=== PATIENT | female | born 1980 | race Caucasian/White ===

== ENCOUNTER 2017-12-11 11:17 | Inpatient (IN) | payer OTHER ==
[2017-12-11] MEDS ORDERED: AMPICILLIN 2 GM/NS (PMX) 100 ML IV (12:30)
[2017-12-11] MEDS ORDERED: BUTORPHANOL 2 MG INJ IV (12:30)
[2017-12-11] MEDS ORDERED: METHYLERGONOVINE 0.2 MG INJ IM (12:30)
[2017-12-11] MEDS ORDERED: MISOPROSTOL 200 MCG TAB PR (12:30)
[2017-12-11] MEDS ORDERED: OXYTOCIN 30 UNITS/LR 500 ML IV ×2 (12:30)
[2017-12-11] MEDS ORDERED: LIDOCAINE 1% (MPF) 30 ML INJ INJ (12:30)
[2017-12-11] MEDS ORDERED: CARBOPROST 250 MCG INJ IM (12:30)
[2017-12-11 13:23] LABS: ADD MAN DIFF? NO
[2017-12-11] MEDS: LACTATED RINGER'S 1,000 ML IV ×4 (13:24→22:47)
[2017-12-11 13:28] LABS: BASOPHIL # 0.1 10^3/ul (0.0-0.1); BASOPHILS % 0.5 % (0.0-2.0); EOSINOPHILS % 0.2 % (0.0-7.0); HEMATOCRIT 36.1 % (37.0-47.0); HEMOGLOBIN 11.8 g/dl (12.0-16.0); LYMPHOCYTES # 1.5 10^3/ul (0.8-2.9); LYMPHOCYTES % 14.7 % (15.0-51.0); MEAN CORPUSCULAR HEMOGLOBIN 28.3 pg (29.0-33.0); MEAN CORPUSCULAR HGB CONC 32.7 g/dl (32.0-37.0); MEAN CORPUSCULAR VOLUME 86.6 fl (82.0-101.0); MEAN PLATELET VOLUME 11.2 fl (7.4-10.4); MONOCYTE # 0.7 10^3/ul (0.3-0.9); MONOCYTES % 6.7 % (0.0-11.0); NEUTROPHIL # 7.6 10^3/ul (1.6-7.5); PLATELET COUNT 273 10^3/UL (140-415); RED BLOOD COUNT 4.17 10^6/ul (4.20-5.40); RED CELL DISTRIBUTION WIDTH 14.6 % (11.5-14.5)
[2017-12-11 13:28] LABS: WHITE BLOOD COUNT 9.9 10^3/ul (4.8-10.8)
[2017-12-11 13:48] LABS: PROTIME 12.2 Sec (11.9-14.9)
[2017-12-11 13:49] LABS: PARTIAL THROMBOPLASTIN TIME 25.7 Sec (25.0-35.0)
[2017-12-11 14:27] LABS: HEPATITIS B SURFACE ANTIGEN NEGATIVE (NEGATIVE)
[2017-12-11] MEDS: OXYTOCIN 30 UNITS/LR 500 ML IV (15:07)
[2017-12-11] MEDS ORDERED: AMPICILLIN 1 GM/NS (PMX) 50 ML IV (16:30)
[2017-12-11] MEDS ORDERED: FENTAnyl 2MCG/ML-ROPIV 0.2% 100 ML (17:08)
[2017-12-11] MEDS ORDERED: DIPHENHYDRAMINE 50 MG INJ IV (18:00)
[2017-12-11] MEDS ORDERED: NALOXONE (0.4 MG/ML) INJ IV (18:00)
[2017-12-11 19:01] LABS: CANNABINOIDS Positive (NEGATIVE)
[2017-12-11 19:18] LABS: AMPHETAMINE/METHAMPHETAMINE Negative (NEGATIVE); BARBITURATES Negative (NEGATIVE); BENZODIAZEPINES Negative (NEGATIVE); COCAINE Negative (NEGATIVE); OPIATES Negative (NEGATIVE)
[2017-12-11] MEDS: ONDANSETRON 4 MG INJ IV (21:26)
[2017-12-11] MEDS: FENTAnyl 2MCG/ML-ROPIV 0.2% 100 ML BAG EPI (22:44)
[2017-12-12] MEDS ORDERED: DEXTROSE 5%-LR 1,000 ML IV (01:10)
[2017-12-12] MEDS ORDERED: ONDANSETRON 4 MG INJ IV (01:30)
[2017-12-12] MEDS ORDERED: DIPHENHYDRAMINE 50 MG INJ IV (01:30)
[2017-12-12] MEDS ORDERED: MISOPROSTOL 200 MCG TAB PR (01:30)
[2017-12-12] MEDS ORDERED: METHYLERGONOVINE 0.2 MG INJ IM (01:30)
[2017-12-12] MEDS ORDERED: ZOLPIDEM 5 MG TAB PO (01:30)
[2017-12-12] MEDS ORDERED: SENNA/DOCUSATE NA (8.6MG/50MG) TAB PO (01:30)
[2017-12-12] MEDS ORDERED: CARBOPROST 250 MCG INJ IM (01:30)
[2017-12-12] MEDS ORDERED: ACETAMINOPHEN 325 MG TAB PO (01:30)
[2017-12-12] MEDS ORDERED: OXYTOCIN 30 UNITS/LR 500 ML IV (01:30)
[2017-12-12] MEDS ORDERED: LANOLIN 7 GM TUBE TOP (01:30)
[2017-12-12] MEDS: OXYTOCIN 30 UNITS/LR 500 ML IV (01:35)
[2017-12-12] MEDS: BENZOCAINE 20% 56 ML SPRAY TOP (05:08)
[2017-12-12] MEDS: LACTATED RINGER'S 1,000 ML IV* ×3 (05:08→17:10)
[2017-12-12] MEDS: WITCH HAZEL/GLYCERIN PAD PR (05:08)
[2017-12-12] MEDS: IBUPROFEN 600 MG TAB PO ×4 (05:08→23:38)
[2017-12-12] MEDS: OXYCODONE/ASPIRIN (4.88/325) TAB PO (22:10)
[2017-12-12 22:12] LABS: RAPID PLASMA REAGIN NONREACTIVE (NR)
[2017-12-13] MEDS: LACTATED RINGER'S 1,000 ML IV* ×2 (01:10→07:54)
[2017-12-13] MEDS: OXYCODONE/ASPIRIN (4.88/325) TAB PO ×2 (03:59→20:04)
[2017-12-13] MEDS: IBUPROFEN 600 MG TAB PO ×3 (06:15→18:21)
[2017-12-13 10:03] LABS: ADD MAN DIFF? NO
[2017-12-13 10:07] LABS: WHITE BLOOD COUNT 8.9 10^3/ul (4.8-10.8)
[2017-12-13 10:07] LABS: BASOPHIL # 0.1 10^3/ul (0.0-0.1); BASOPHILS % 0.6 % (0.0-2.0); EOSINOPHILS # 0.1 10^3/ul (0.0-0.5); EOSINOPHILS % 0.7 % (0.0-7.0); HEMATOCRIT 34.6 % (37.0-47.0); HEMOGLOBIN 11.2 g/dl (12.0-16.0); LYMPHOCYTES # 1.6 10^3/ul (0.8-2.9); LYMPHOCYTES % 18.5 % (15.0-51.0); MEAN CORPUSCULAR HEMOGLOBIN 28.8 pg (29.0-33.0); MEAN CORPUSCULAR HGB CONC 32.4 g/dl (32.0-37.0); MEAN CORPUSCULAR VOLUME 88.9 fl (82.0-101.0); MEAN PLATELET VOLUME 11.2 fl (7.4-10.4); MONOCYTE # 0.9 10^3/ul (0.3-0.9); MONOCYTES % 9.6 % (0.0-11.0); NEUTROPHIL # 6.2 10^3/ul (1.6-7.5); NEUTROPHILS % 69.5 % (39.0-77.0); PLATELET COUNT 255 10^3/UL (140-415); RED BLOOD COUNT 3.89 10^6/ul (4.20-5.40); RED CELL DISTRIBUTION WIDTH 14.7 % (11.5-14.5)
[2017-12-13] MEDS: DIBUCAINE 1% 30 GM OINT PR (11:35)
[2017-12-13] MEDS: WITCH HAZEL/GLYCERIN PAD PR (11:35)
[2017-12-13 12:23] LABS: RUBELLA ANTIBODY - IGG 2.98 index; RUBELLA ANTIBODY - IGM <20.00 AU/mL
[2017-12-14] MEDS: IBUPROFEN 600 MG TAB PO ×3 (00:18→12:10)
[2017-12-14 06:41] LABS: URINE DRUG SCREEN RESULT DRUG(S) DETECTED:
[2017-12-14] MEDS: MEASLES,MUMPS,RUBELLA VACCINE INJ SC* (09:00)
[2017-12-14] MEDS: DIPHTH/TET/ACEL PERTUSS (ADULT) 0.5 ML VIAL IM* (09:00)
== END 2017-12-14 15:25 | disposition home or self-care (01) | DRG 775 ==
LOC: OBT 11:17 → PP1 12-12 04:13 → L-D 11:19 → OBT 12:38 → L-D 12:25
PROVIDERS: Obstetrics & Gynecology
PROC: 10E0XZZ Delivery of Products of Conception, External Approach (ICD-10-PCS; principal; 2017-12-12)
PROC: 0HQ9XZZ Repair Perineum Skin, External Approach (ICD-10-PCS; 2017-12-12)
DX: O48.0 Post-term pregnancy (principal); O70.0 First degree perineal laceration during delivery; R82.5 Elevated urine levels of drugs, medicaments and biological substances; Z37.0 Single live birth; Z3A.40 40 weeks gestation of pregnancy
CPT/HCPCS: 62319; 76815; 80307; 85025; 85610; 85730; 86592; 86762; 86850; 86900; 86901; 87340; 99464